=== PATIENT | female | born 1995 | race American Indian/Alaskan Native ===

== ENCOUNTER 2016-12-22 23:27 | Emergency (ER) | payer BC, OTHER ==
[2016-12-23] MEDS ORDERED: LORazepam 1 MG Tab PO ONE (00:12)
--- NOTE | 2016-12-23 01:35 | EDM.PDOC ---
ED HPI GENERAL MEDICAL PROBLEM - General Chief Complaint: Respiratory Problem Stated Complaint: HARD TIME BREATHING Time Seen by Provider: 12/23/16 00:10 Source of Information: Reports: Patient, RN - History of Present Illness INITIAL COMMENTS - FREE TEXT/NARRATIVE: She is in custody and will be going to skilled nursing tonight She complains of anxiety and shortness of breath She complains of back pain - Related Data Allergies Allergy/AdvReac Type Severity Reaction Status Date / Time sertraline HCl [From Zoloft] Allergy Other Verified 06/24/15 20:59 Sulfa (Sulfonamide Allergy Other Verified 06/24/15 20:58 Antibiotics) Home Meds: Home Meds Acetaminophen [Tylenol Extra Strength] 500 mg PO Q4H PRN #1 tablet 06/27/15 [Rx] Ibuprofen [Motrin] 400 mg PO Q4H PRN #1 tablet 06/27/15 [Rx] ClonazePAM [KlonoPIN] 1 mg PO ASDIRECTED PRN 12/22/16 [History] metFORMIN [Glucophage XR] 500 mg PO BIDMEALS 12/22/16 [History] Past Medical History Other Cardiovascular History: gestational hypertension Other Gastrointestinal History: 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 Denies: Cough, Sputum Cardiovascular: Denies: Chest Pain GI/Abdominal: Denies: Black Stool, Bloody Stool Musculoskeletal: Reports: Other (low back pain) ED EXAM, GENERAL - Physical Exam Exam: See Below Free Text/Narrative:: alert lungs CTA no thyromegaly heart RRR without m General Appearance: Alert, Anxious Neck: Supple, Non-Tender Respiratory/Chest: No Respiratory Distress, Lungs Clear GI/Abdominal: Non-Tender Course - Vital Signs Last Recorded V/S: Last Vital Signs Temp 97.6 F 12/22/16 23:33 Pulse 118 H 12/22/16 23:33 Resp 20 12/22/16 23:33 BP 179/94 H 12/22/16 23:33 Pulse Ox 98 12/22/16 23:33 - Orders/Labs/Meds Orders: Active Orders 24 hr Category Date Time Status EKG Documentation Completion [RC] STAT Care 12/23/16 00:12 Active Meds: Medications Discontinued Medications Generic Name Dose Route Start Last Admin Trade Name Jo-Ann PRN Reason Stop Dose Admin Lorazepam 1 mg 12/23/16 00:12 12/23/16 01:03 Ativan PO 12/23/16 00:13 1 mg ONETIME ONE Administration - Re-Assessments/Exams Free Text/Narrative Re-Assessment/Exam: 12/23/16 01:35 12/23/16 01:37 12/23/16 01:42 feels better after ativan repeat blood pressure 140/70 mm Hg. Departure - Departure Time of Disposition: 01:36 Disposition: Home, Self-Care 01 Condition: good Clinical Impression: Anxiety Clinical Impression: (Ruled Out): Low back pain - Discharge Information Referrals: PCP,None [Primary Care Provider] - Forms: ED Department Discharge Additional Instructions: recheck with your primary care doctor as needed. - My Orders Last 24 Hours: My Active Orders 12/23/16 00:12 EKG Documentation Completion [RC] STAT - Assessment/Plan Last 24 Hours: My Active Orders 12/23/16 00:12 EKG Documentation Completion [RC] STAT
[2016-12-23 05:36] VITALS: BP 140/73
== END 2016-12-23 01:56 | disposition home or self-care (01) ==
LOC: MW.ED 23:27
DX: F41.9 Anxiety disorder, unspecified (principal); E11.9 Type 2 diabetes mellitus without complications; Z79.84 Long term (current) use of oral hypoglycemic drugs; Z88.2 Allergy status to sulfonamides; Z88.8 Allergy status to other drugs, medicaments and biological substances
CPT/HCPCS: 93005; 99285; A9270; 99283

== ENCOUNTER 2017-02-01 | Emergency (ER) | payer BC, OTHER ==
--- NOTE | 2017-02-01 00:18 | EDM.PDOC ---
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 Past medical history: As per history of present illness and as reviewed below otherwise noncontributory. Surgical history: As per history of present illness and as reviewed below otherwise noncontributory. Social history: No reported history of drug or alcohol abuse. Family history: As per history of present illness and as reviewed below otherwise noncontributory. Physical exam: HEENT: Atraumatic, normocephalic, pupils reactive, negative for conjunctival pallor or scleral icterus, mucous membranes moist, throat clear, neck supple, nontender, trachea midline. Lungs: Clear to auscultation, breath sounds equal bilaterally, chest nontender. Heart: S1S2, regular, negative for clicks, rubs, or JVD. Abdomen: Soft, nondistended, nontender. Negative for masses or hepatosplenomegaly. Negative for costovertebral tenderness. Pelvis: Stable nontender. Genitourinary: Deferred. Rectal: Deferred. Extremities: Atraumatic, negative for cords or calf pain. Neurovascular unremarkable. Neuro: Awake, alert, oriented. Cranial nerves II through XII unremarkable. Cerebellum unremarkable. Motor and sensory unremarkable throughout. Exam nonfocal. Diagnostics: None Therapeutics: None Impression: #1 medical screening exam Definitive disposition and diagnosis as appropriate pending reevaluation and review of above. 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 ED EXAM, GENERAL - Physical Exam Exam: See Below (See dictation) Departure - Departure Time of Disposition: 00:17 Disposition: Home, Self-Care 01 Condition: Good Clinical Impression: Encounter for medical screening examination - Discharge Information Forms: ED Department Discharge Additional Instructions: The following information is given to patients seen in the emergency department who are being discharged to home. This information is to outline your options for follow-up care. We provide all patients seen in our emergency department with a follow-up referral. The need for follow-up, as well as the timing and circumstances, are variable depending upon the specifics of your emergency department visit. If you don't have a primary care physician on staff, we will provide you with a referral. We always advise you to contact your personal physician following an emergency department visit to inform them of the circumstance of the visit and for follow-up with them and/or the need for any referrals to a consulting specialist. The emergency department will also refer you to a specialist when appropriate. This referral assures that you have the opportunity for followup care with a specialist. All of these measure are taken in an effort to provide you with optimal care, which includes your followup. Under all circumstances we always encourage you to contact your private physician who remains a resource for coordinating your care. When calling for followup care, please make the office aware that this follow-up is from your recent emergency room visit. If for any reason you are refused follow-up, please contact the [facility] emergency department at and asked to speak to the emergency department charge nurse. [facility] [address] [address] Call schedule appointment above continue current medications as directed return as needed as discussed
[2017-02-01 05:11] VITALS: BP 127/77
== END 2017-02-01 00:38 | disposition home or self-care (01) ==
LOC: MW.ED
DX: Z00.00 Encounter for general adult medical examination without abnormal findings (principal); K21.9 Gastro-esophageal reflux disease without esophagitis; E11.9 Type 2 diabetes mellitus without complications; Z88.2 Allergy status to sulfonamides; Z88.8 Allergy status to other drugs, medicaments and biological substances; Z79.84 Long term (current) use of oral hypoglycemic drugs
CPT/HCPCS: 99282